=== PATIENT | female | born 1965 | race Caucasian/White ===

== ENCOUNTER 2020-01-12 23:29 | Emergency (ER) | payer OTHER, SELFPAY ==
[2020-01-12 23:43] VITALS: BP 134/85; PULSE 143; RESP 16; TEMP 36.4; O2SAT 95; BMI 25.4
--- NOTE | 2020-01-12 23:56 | XR_ITS ---
WS: [id number] XR chest 1V portable [id number] REASON FOR EXAM: cp FINDINGS: Sternotomy changes are seen. The lung campbell are hyper aerated consistent with chronic obstructive pulmonary disease. There was no pneumothorax seen. No pneumonia, pleural effusion, pulmonary edema, or mass effect. The chest is similar to December 16, 2018. XR/XR chest 1V portable [id number] IMPRESSION: Chronic obstructive pulmonary disease. Previous sternotomy changes.
--- NOTE | 2020-01-12 23:56 | ECG_ITS ---
Measurements Intervals [place] Rate: 143 P: NV: 0 QRS: -57 QRSD: 129 T: 73 QT: 312 QTc: 483 ATRIAL FLUTTER WITH RAPID VENTRICULAR RESPONSE MARKED LEFT AXIS DEVIATION [QRS AXIS < -30] LEFT BUNDLE BRANCH BLOCK No previous ECG available for comparison Electronically Signed On 01-13-2020 16:39:45 FRAMING SPECIALIST by Ashley Barclay M.D. [id number]
--- NOTE | 2020-01-12 23:57 | ED_ITS ---
Entered by Karin Rodriguez, acting as scribe for Liza Colon MD Jan 12, 2020 23:29 HPI - Arrhythmia/Palpitations General: Chief Complaint: Arrhythmia/Palpitations Stated Complaint: high BP Time Seen by Provider: 01/12/20 23:56 Source: patient and family Mode of arrival: ambulatory History of Present Illness: HPI narrative: 54 y/o female presents to the ED with complaint of racing heart sensation. Pt states she had a mitral valve prolapse repair 02/13/2019. She states she has not had any cardiac issues since then. However, she took a breathing treatment this evening and started feeling like her heart rate was increasing. She states she has used this inhaler many times before and never had any issues. complaint: heart racing Onset (ago): hour(s) Severity: mild Context: other (used inhaler) Associated symptoms: Deny nausea or vomiting Review of Systems Const: Denies: fever, chills, body aches or change in appetite Eyes: Denies: blurry vision or eye discomfort ENMT: Denies: throat pain or dental pain Card: Reports: other (racing heart beat) GI: Denies: abdominal pain, nausea, vomiting or diarrhea : Denies: painful urination Musc: Denies: neck pain or back pain Skin/Breast: Denies: rash Neuro: Denies: headache Psych: Denies: depression Jackson/Lymph: Denies: easy bruising All/Imm: Denies: hives PFSH ED PFSH: Social History Smoking and tobacco status: never smoked Physical Exam Const: COMMON NORMALS: no apparent distress, oriented x3 and healthy appearing HENMT: COMMON NORMALS: normocephalic and head/scalp atraumatic HEAD & SCALP: normocephalic and atraumatic Eye: COMMON NORMALS: PERRL and EOMs intact bilaterally PUPIL: Yes PERRL Neck/C-Spine: COMMON NORMALS: full ROM and supple Chest: COMMONS NORMALS: inspection of chest normal and palpation of chest normal Resp: COMMON NORMALS: normal respiratory effort, no retractions, no use of accessory muscles and clear to auscultation bilaterally AUSCULTATION: clear to auscultation bilaterally Cardio: COMMON NORMALS: no murmurs RATE: tachycardic GI: COMMON NORMALS: normal to inspection, nondistended, normoactive bowel sounds, soft to palpation, non-tender and no masses PALPATION: Yes soft Extremity: COMMON NORMALS: normal to inspection and full ROM Neuro: COMMON NORMALS: oriented x3, moves all extremities and no focal motor deficits Psych: COMMON NORMALS: mental status grossly normal, thought process normal and cooperative THOUGHT PROCESS: normal thought process Skin: COMMON NORMALS: no rashes or lesions noted and no wounds GENERAL SKIN EXAM: no rashes or lesions noted Course Vital Signs: Vital signs: Vital Signs Temperature 97.6 F 01/12/20 23:43 Pulse Rate 80 01/13/20 01:30 Respiratory Rate 19 H 01/13/20 01:30 Blood Pressure 119/71 01/13/20 01:30 Pulse Oximetry 98 01/13/20 01:30 MDM - Arrhythmia/Palpitations MDM Narrative: Medical decision making narrative: Grisel presents here with A. fib that is likely brought on by her inhaler. Patient spontaneously converted here and initial lab work including troponin are normal. Patient was observed here and continued to have normal sinus rhythm and she states she feels back to normal. Patient is stable for discharge and is to follow-up with Dr. Mina in 3 to 5 days. She is to return if worsening. She has no signs of pulmonary embolism. Lab Data: Labs: Lab Results 01/12/20 01/12/20 01/12/20 Range/Units 00:07 00:07 00:07 WBC 5.0 (4.0-10.0) 10^3/ uL RBC 4.25 (4.1-5.3) 10^6/u L Hgb 13.5 (11.5-15.3) g/dL Hct 40.9 (37.0-47.0) % MCV 96.2 (81-99) fL MCH 31.8 (28.0-34.0) pg MCHC 33.0 (30.0-36.0) g/dL RDW 11.7 L (12.1-15.1) % Plt Count 231 (130-400) 10^3/c mm MPV 10.1 (7.4-10.4) fL Neut % (Auto) 56.2 % Lymph % (Auto) 34.3 % [place] % (Auto) 5.5 % Eos % (Auto) 3.4 % Baso % (Auto) 0.4 % Neut # (Auto) 2.8 (1.8-7.7) 10^3/u L Lymph # (Auto) 1.7 (0.8-4.8) 10^3/u L [place] # (Auto) 0.3 (0.2-0.9) 10^3/u L Eos # (Auto) 0.2 (0.0-0.8) 10^3/u L Baso # (Auto) 0.0 (0.0-0.1) 10^3/u L Nucleated RBC % (a uto) 0 % Nucleated RBCs # 0.0 /100WBC Sodium 139 (136-145) mmol/L Potassium 3.8 (3.5-5.1) mmol/L Chloride 103 (98-107) mmol/L Carbon Dioxide 20 L (22-29) mmol/L Anion Gap 19.8 H (5-19) BUN 11 (6-20) mg/dL Creatinine 0.6 (0.5-0.9) mg/dL GFR Calculation 103.4 (90-130) mL/min Glucose 120 H (65-115) mg/dL Calcium 9.6 (8.5-10.5) mg/dL Total Bilirubin 0.4 (0.15-1.2) mg/dL AST 9 (0-32) U/L ALT 12 (0-33) U/L Alkaline Phosphata se 117 H (35-105) IU/L Troponin T Baselin e 7 (0-10) ng/mL Total Protein 7.7 (6.6-8.7) g/dL Albumin 4.4 (3.5-5.2) g/dL Globulin 3.3 (1.3-4.6) g/dL EKG Data^: EKG 1: Attestation: I personally reviewed and interpreted this EKG as follows: EKG interpretation date: 01/12/20 EKG interpretation time: 23:45 Interpretation: afib hr [address] or t wave abnormalties qrs 129 qtc 430 EKG 2: Attestation: I personally reviewed and interpreted this EKG as follows: EKG interpretation date: 01/13/20 EKG interpretation time: 01:25 Interpretation: nsr hr [address] or t wave abnormalities qrs 85 qtc 430 Discharge Plan Discharge Patient Disposition: Home, Self-Care Clinical Impression: Atrial fibrillation Qualifiers: Atrial fibrillation type: paroxysmal Qualified Code(s): I48.0 - Paroxysmal atrial fibrillation Condition: Stable Discharge Orders: Discharge Order (Routine); Ordered 01/13/20 Ordered By: Liza Colon Referrals: Juan Jolly DO [Primary Care Provider] - Discharge Diet: Advance as tolerated Discharge Activity: Resume usual activity Patient Instructions: Atrial Fibrillation (ED) Discharge Date/Time: 01/13/20 01:30 Coding Level of Care Code ED Copper Plater for Chg Fwd Exam Comprehensive The documentation recorded by the Michael goodrich Ashley, accurately reflects the service I personally performed and the decisions made by Darlene trujillo Korby, MD Jan 12, 2020 23:29
[2020-01-13 00:16] LABS: Basophils % 0.4 %; Eosinophils # 0.2 10^3/uL (0.0-0.8); Eosinophils % 3.4 %; Hematocrit 40.9 % (37.0-47.0); Hemoglobin 13.5 g/dL (11.5-15.3); Lymphocytes # 1.7 10^3/uL (0.8-4.8); Lymphocytes % 34.3 %; Mean Corpuscular Hemoglobin 31.8 pg (28.0-34.0); Mean Corpuscular Volume 96.2 fL (81-99); Mean Platelet Volume 10.1 fL (7.4-10.4); Monocytes # 0.3 10^3/uL (0.2-0.9); Monocytes % 5.5 %; Neutrophils # 2.8 10^3/uL (1.8-7.7); Neutrophils % 56.2 %; Nucleated Red Blood Cells % 0 %; Platelet Count 231 10^3/cmm (130-400); Red Blood Count 4.25 10^6/uL (4.1-5.3); Red Cell Distribution Width 11.7 % (12.1-15.1)
[2020-01-13 00:32] LABS: Troponin(5th) Baseline 7 ng/mL (0-10)
[2020-01-13] MEDS: sodium chloride 0.9% 1,000 ML 999 ML IV (00:39)
[2020-01-13 00:53] LABS: Alanine Aminotransferase 12 U/L (0-33); Albumin Level 4.4 g/dL (3.5-5.2); Alkaline Phosphatase 117 IU/L (35-105); Anion Gap 19.8 (5-19); Aspartate Amino Transferase 9 U/L (0-32); Blood Urea Nitrogen 11 mg/dL (6-20); Calcium 9.6 mg/dL (8.5-10.5); Carbon Dioxide 20 mmol/L (22-29); Chloride 103 mmol/L (98-107); Globulin 3.3 g/dL (1.3-4.6); Glomerular Filtration Rate 103.4 mL/min (90-130); Glucose 120 mg/dL (65-115); Potassium 3.8 mmol/L (3.5-5.1); Sodium 139 mmol/L (136-145); Total Bilirubin 0.4 mg/dL (0.15-1.2); Total Protein 7.7 g/dL (6.6-8.7)
[2020-01-13 01:30] VITALS: BP 119/71; PULSE 80; RESP 19; O2SAT 98
--- NOTE | 2020-01-13 05:56 | ECG_ITS ---
Measurements Intervals [place] Rate: 73 P: 19 NE: 148 QRS: 76 QRSD: 85 T: 2 QT: 404 QTc: [address] DEVIATION AND MODERATE T-WAVE ABNORMALITY, CONSIDER ANTERIOR ISCHEMIA No previous ECG available for comparison Electronically Signed On 01-13-2020 13:24:22 TELETYPE ADJUSTER by Ashley Barclay M.D. [id number]
== END 2020-01-13 01:30 | disposition home or self-care (01) ==
PROVIDERS: Emergency Provider Emergency Medicine; Family Provider Internal Medicine; PCP Internal Medicine
DX: I48.91 Unspecified atrial fibrillation (principal)
CPT/HCPCS: 36415; 71045; 80053; 84484; 85025; 93005; 96360; 96361; 96374; 99283; 99284; J7030

== ENCOUNTER 2020-08-27 07:28 | Outpatient (CLI) | payer OTHER, SELFPAY ==
--- NOTE | 2020-08-27 07:33 | MM_ITS ---
WS: [id number] Bilateral screening digital mammogram, 08/27/2020 Clinical Data: SCREENING Comparison: 07/18/2019, 05/06/2018, 02/23/2017, 12/09/2015, and 2012, 05/06/2010, 01/28/2008, 02/15/2007. Findings: The breast parenchymal pattern shows heterogeneous density No spiculated masses or clustered calcific ations are seen. There are no secondary signs of carcinoma. Mole markers are on both breasts. MM/[id number] Impression: 1. Negative bilateral mammogram unchanged. 2. Recommend annual screening mammograms. BIRADS: 1-Negative FOLLOW UP: 1 Year Follow-up The CAD checker bakery products was used. ,
== END 2020-08-27 07:29 | disposition home or self-care (01) ==
LOC: RADSHAW 07:30
PROVIDERS: PCP Internal Medicine; Visit Provider Internal Medicine
DX: Z12.31 Encounter for screening mammogram for malignant neoplasm of breast (principal)
CPT/HCPCS: 77067

== ENCOUNTER 2020-10-08 10:46 | Outpatient (CLI) | payer OTHER, SELFPAY ==
--- NOTE | 2020-10-08 11:00 | USCV_ITS ---
Grisel Edmond Age: 55 Gender: F : 1965 Exam Date: 10/08/2020 11:07 Ordering Phys: Yared Carroll M.D ([email or web address]) Technologist: Jaclyn Clement Exam Location: [facility] – [place] Indication: MV REPAIR BP: 116 / 76 HR: 78 Rhythm: Sinus Technical Quality: Adequate MEASUREMENTS (Male / Female) Normal Values 2D ECHO LVOT Diameter 2.0 cm LA Diameter 3.3 cm LA Width 2.9 cm LA Height 3.5 cm RA Width 3.5 cm RA Height 3.9 cm Aorta at Sinotubular Diameter 3.1 cm M-MODE LV Diastolic Diameter MM 4.5 cm 4.2 - 5.9 / 3.9 - 5.3 cm LV Systolic Diameter MM 2.5 cm LV Ejection Fraction MM Teich 74.5 % IVS Diastolic Thickness MM 0.9 cm 0.6 - 1.0 / 0.6 - 0.9 cm IVS Systolic Thickness MM 1.5 cm LVPW Diastolic Thickness MM 1.0 cm 0.6 - 1.0 / 0.6 - 0.9 cm LVPW Systolic Thickness MM 1.3 cm RV Diastolic Diameter MM 1.8 cm Aortic Annulus Diameter 1.8 cm LA Ao Ratio MM 1.2 MV E Point Septal Separation 0.3 cm DOPPLER AV Peak Velocity 98.0 cm/s LVOT Peak Velocity 67.0 cm/s AV Area Cont Eq vti 2.4 cm squared AV Area Cont Eq pk 2.2 cm squared MV Area PHT 4.1 cm squared Mitral E to A Ratio 0.7 MV E' Velocity 49.2 cm/s Mitral E to MV E' Ratio 10.8 Mitral E to LV E' Lateral Ratio 11.4 Mitral E to LV E' Septal Ratio 10.3 TR Peak Velocity 216.0 cm/s TR Peak Gradient 18.7 mmHg TR Mean Velocity 162.9 cm/s TR Mean Gradient 11.8 mmHg TR Velocity Time Integral 62.5 cm TV Peak E Velocity 65.0 cm/s PV Peak Velocity 53.0 cm/s RV Acceleration Time 0.1 s RV Ejection Time 0.4 s RV AcT/ET 0.3 FINDINGS Left Ventricle Normal left ventricular size. Systolic function is mildly reduced. LVEF is 40 to 45%. Septal motion is consistent with prior cardiac surgery. Mild global hypokinesis is noted. Moderate hypokinesis of anterior and anteroseptal cordoba is noted. Grade 1 diastolic dysfunction is noted. Right Ventricle The right ventricle is normal in size and function. Right Atrium The right atrium is normal in size. Left Atrium The left atrium is normal in size. Mitral Valve Annuloplasty ring is present. No significant mitral regurgitation is noted. There is no mitral regurgitation.. Aortic Valve Structurally normal aortic valve without significant sclerosis or stenosis. There is no aortic regurgitation. Tricuspid Valve Structurally normal tricuspid valve without significant stenosis or regurgitation. Insufficient TR jet to calculate RVSP. Pulmonic Valve Structurally normal pulmonic valve without significant stenosis. There is no pulmonic regurgitation. Pericardium Normal pericardium without effusion. Aorta Normal ascending aorta dimension. CONCLUSIONS LV systolic function is mildly reduced with EF of 40 to 45%. Mild global hypokinesis with moderate hypokinesis of anterior and anteroseptal cordoba. Septal motion is consistent with prior cardiac surgery. Grade 1 diastolic dysfunction is present. Mitral annuloplasty ring is not seen. No significant mitral regurgitation or stenosis is present. Compared to prior study from 10/16/2019, LV systolic function is mildly reduced. Yared Carroll MD (Electronically Signed) Final Date: 12 October 2020 10:13 S
== END 2020-10-08 10:47 | disposition home or self-care (01) ==
LOC: RAD 10:49
PROVIDERS: PCP Internal Medicine; Visit Provider Internal Medicine
DX: I34.1 Nonrheumatic mitral (valve) prolapse (principal)
CPT/HCPCS: 93306

== ENCOUNTER 2021-03-30 15:04 | Outpatient (CLI) | payer OTHER, SELFPAY ==
--- NOTE | 2021-03-30 15:12 | XR_ITS ---
WS: [id number] DEXA (DUAL ENERGY X-RAY ABSORPTIOMETRY) Bone mineral density was performed using a [employer] machine. HISTORY: POST MENOPAUSAL COMPARISON: 04/20/2016 Lumbar spine BMD (L1-L4): 0.880 g/cm2 T score: -2.5 Z score: -1.8 Total hip BMD Right: 0.782. T score: -1.8 Z score: -1.2 RIGHT forearm BMD: 0.799. T score: -0.9 Z score: -0.1 10 year probability of a major osteoporotic fracture is 22%. Compared to the prior study from 04/20/2016. Lumbar spine bone mineral density has decreased by 8.3%. Bilateral hips bone mineral density has increased by 3.9%. RIGHT forearm bone mineral density has decreased 2.2%. XR/XR DEXA axial skeleton* [id number] IMPRESSION: OSTEOPENIA based upon the WHO classification for females. Significant decrease in bone mineral density within the lumbar spine and RIGHT forearm since the vida or study.
== END 2021-03-30 15:05 | disposition home or self-care (01) ==
LOC: RADWPI 15:09
PROVIDERS: PCP Internal Medicine; Visit Provider Physician Assistant
DX: Z78.0 Asymptomatic menopausal state (principal); M85.89 Other specified disorders of bone density and structure, multiple sites
CPT/HCPCS: 77080

== ENCOUNTER 2021-06-20 13:15 | Outpatient (CLI) | payer OTHER, SELFPAY ==
[2021-06-20 13:35] VITALS: BP 126/78; PULSE 78; RESP 18; TEMP 36.2; O2SAT 97
[2021-06-20] MEDS: denosumab 60 mg SDV SUBCUT (13:46)
[2021-06-20 14:02] VITALS: BP 92/50; PULSE 65; RESP 18; TEMP 36.4; O2SAT 95
[2021-06-20 14:18] VITALS: BP 93/60; PULSE 61; RESP 18; O2SAT 95
[2021-06-20 14:34] VITALS: BP 124/74; PULSE 74; RESP 18; O2SAT 96
--- NOTE | 2021-06-20 14:39 | PC.NURSE ---
Patient's blood pressure was low, (71/41) on post injection vital sign check. Upon manual recheck it was 92/50. Continued to assess vitals periodically, and her reading upon discharge was 124/74. She stated that she felt fine, and was showing no s/s of distress.
== END 2021-06-20 13:16 | disposition home or self-care (01) ==
LOC: ONCMED 13:18
PROVIDERS: PCP Internal Medicine; Referring Provider Internal Medicine; Visit Provider Internal Medicine
DX: M81.0 Age-related osteoporosis without current pathological fracture (principal); Z79.899 Other long term (current) drug therapy
CPT/HCPCS: 96372; J0897

== ENCOUNTER 2021-09-16 18:37 | Emergency (ER) | payer OTHER, SELFPAY ==
[2021-09-16 19:22] VITALS: BP 151/82; PULSE 81; RESP 18; TEMP 36.6; O2SAT 99; BMI 25.7
--- NOTE | 2021-09-16 19:52 | XRR_ITS ---
PROCEDURE INFORMATION: Exam: XR Right Knee Exam date and time: 09/16/2021 7:52 PM Age: 56 years old Clinical indication: Patient HX: Right knee pain after injury - fall from swing TECHNIQUE: Imaging protocol: XR Right knee. Views: 3 views. COMPARISON: No relevant prior studies available. FINDINGS: Bones/joints: Comminuted mildly displaced fracture through the anterior and distal 3rd of the patella. The other bones are intact. Right knee joint effusion with layering fat. Soft tissues: Normal. XR/XR knee RT 3V* [id number] IMPRESSION: 1. Comminuted patella fracture. 2. Lipohemarthrosis. Radiation Dose CTDIVOL = (mGy): DLP = (mGy-cm)
--- NOTE | 2021-09-16 20:48 | W.ED.EXTPRO ---
HPI - Extremity Problem General: Chief complaint: Extremity Injury, Lower Stated complaint: Rt Knee Injury Time Seen by Provider: 09/16/21 20:47 History of Present Illness: HPI Narrative: 56-year-old female comes in today with injury to the right knee. Patient was swinging on a swing and her feet caught against the ground causing her to fall forward she landed against her right knee hard on ground on the ground. Patient has pain and discomfort to the anterior knee. Patient appears well. Patient appears no acute distress. Review of Systems General: Reports: 10 or more systems reviewed and unremarkable except in HPI and below Musc: Reports: other (Right knee pain) [facility] PFSH: Medical History Asthma Atrial flutter Closed hip fracture requiring operative repair Family history of malignant melanoma MVP (mitral valve prolapse) Nasal polyps Surgical History H/O sinus surgery S/P mitral valve repair Status post tubal ligation Family History Mother Cancer Diabetes Brother Diabetes Other Family history of malignant melanoma Social History Smoking and tobacco status: never smoked Alcohol intake: never Lives independently: Yes Household members: spouse Marital status: Current occupational status: employed History of recent travel: No Current gender identity: Female Physical Exam Const: COMMON NORMALS: no acute distress and patient oriented x3 GENERAL APPEARANCE: cooperative HENMT: COMMON NORMALS: normocephalic and Normal external nose present HEAD & SCALP: normal to inspection and normocephalic NOSE: Normal external nose present MOUTH: Normal oral and palatal mucosa present THROAT: posterior oropharynx normal Eye: GENERAL EYE: appearance normal, both eyes and all related structures Neck/C-Spine: COMMON NORMALS: full ROM Chest: COMMONS NORMALS: normal inspection of the chest Resp: COMMON NORMALS: normal respiratory effort EFFORT & INSPECTION: Yes able to speak in complete sentences Cardio: COMMON NORMALS: regular rate and regular rhythm RATE: regular rate RHYTHM: regular rhythm GI: COMMON NORMALS: non-tender Back/Pelvis: COMMON NORMALS: thoracic and lumbar spine normal to inspection Extremity: NARRATIVE EXTREMITY EXAM: Ecchymosis and swelling to the anterior right knee. Patient reports pain with flexion. Neuro: COMMON NORMALS: patient oriented x3 and moves all extremities Psych: COMMON NORMALS: mental status grossly normal and cooperative Skin: COMMON NORMALS: no rashes or lesions noted GENERAL SKIN EXAM: no rashes or lesions noted Course Vital Signs: Vital signs: Vital Signs Temperature 97.8 F 09/16/21 19:22 Pulse Rate 81 09/16/21 19:22 Respiratory Rate 18 09/16/21 19:22 Blood Pressure 151/82 09/16/21 19:22 Pulse Oximetry 99 09/16/21 19:22 MDM - Extremity (Nontraumatic) MDM Narrative: Medical decision making narrative: Patient comes in today for injury to the right knee. On exam there is anterior ecchymosis and swelling. Distal pulses and sensations are intact. Reduced flexion is noted. Distal pulses and sensation is intact. Differential diagnosis includes contusion, joint effusion, patellar fracture. X-ray notes a comminuted nondisplaced patellar fracture. Reviewed exam with patient with recommendations for treatment and follow-up. Patient reported understanding and agreed to plan. Case management will assist patient with follow-up with orthopedist. Discharge Plan Discharge Patient Disposition: Home Clinical Impression: Patellar fracture Qualifiers: Encounter type: initial encounter Fracture type: closed Fracture morphology: comminuted Fracture alignment: nondisplaced Laterality: right Qualified Code(s): S82.044A - Nondisplaced comminuted fracture of right patella, initial encounter for closed fracture Condition: Stable Prescriptions: New hydrocodone-acetaminophen 5-325 mg tablet 1 tab PO Q6H PRN (Reason: pain) Qty: 7 RF: 0 No Action aspirin [Adult Aspirin Regimen] 81 mg tablet,delayed release (DR/EC) 81 mg PO DAILY RF: 0 metoprolol succinate 25 mg tablet extended release 24 hr 12.5 mg PO DAILY RF: 0 budesonide 32 mcg/actuation spray,non-aerosol 1 spray INTRANASAL DAILY PRNRF: 0 Arnuity Ellipta 200 mcg/actuation blister with device 1 inh inhalation DAILY 30 Days Qty: 30 RF: 4 levalbuterol tartrate 45 mcg/actuation HFA aerosol inhaler 2 inh inhalation Q6H PRN (Reason: shortness of breath or wheezing) 30 Days Qty: 15 RF: 4 Discharge Orders: Discharge ED (Routine); Ordered 09/16/21 Ordered By: Eddi Wang Referrals: Juan Jolly DO [Primary Care Provider] - Discharge Diet: Usual diet Discharge Activity: Limit activity as instructed Patient Instructions: Patellar Fracture (ED), Opioid Safety Activity Restrictions/Additional Instructions: Activity as tolerated. Use acetaminophen or ibuprofen for control of pain. Use hydrocodone for breakthrough pain. Case management will contact you regarding follow-up appointment with orthopedist. Return to the emergency department for new concerns. Coding Level of Care Code ED Last Repairer Helper for Hina George
[2021-09-16] MEDS: HYDROcodone-acetaminophen 7.5-325 mg Tablet 1 TAB PO (21:05)
[2021-09-16 21:22] VITALS: BP 151/82; PULSE 81; RESP 18; TEMP 36.6; O2SAT 99
--- NOTE | 2021-09-19 09:30 | DCPLANNER ---
senior group manager had message to schedule a follow up appointment for patient with ortho. senior group manager called the ortho clinic, spoke with Pita, gave clinic patients information. senior group manager was told that patients information would be printed and reviewed. Clinic will call patient with appointment information.
--- NOTE | 2021-09-21 14:29 | DCPLANNER ---
Patient had a follow up appointment scheduled for 09.19.[address] Orellana at [facility] -patient did attend appointment.
== END 2021-09-16 21:20 | disposition home or self-care (01) ==
PROVIDERS: Emergency Provider Nurse Practitioner Family; PCP Internal Medicine
DX: S82.044A Nondisplaced comminuted fracture of right patella, initial encounter for closed fracture (principal); Z79.82 Long term (current) use of aspirin; W09.1XXA Fall from playground swing, initial encounter
CPT/HCPCS: 29530; 73562; 99283; E0114

== ENCOUNTER 2021-09-19 14:23 | Outpatient (CLI) | payer OTHER, SELFPAY | END 2021-09-19 14:24 | disposition home or self-care (01) | LOC: SPT 14:24 | PROVIDERS: PCP Internal Medicine; Visit Provider Specialist | DX: Z46.89 Encounter for fitting and adjustment of other specified devices (principal); S82.044A Nondisplaced comminuted fracture of right patella, initial encounter for closed fracture; X58.XXXA Exposure to other specified factors, initial encounter | CPT/HCPCS: 97760; L1832 ==

== ENCOUNTER → 2021-10-11 10:51 | Outpatient (BNVA) | payer OTHER, SELFPAY | PROVIDERS: PCP Internal Medicine; Visit Provider Specialist | DX: S82.044D Nondisplaced comminuted fracture of right patella, subsequent encounter for closed fracture with routine healing (principal); X58.XXXD Exposure to other specified factors, subsequent encounter | CPT/HCPCS: 73560 ==

== ENCOUNTER → 2021-10-31 08:06 | Outpatient (BNVA) | payer OTHER, SELFPAY | PROVIDERS: PCP Internal Medicine; Visit Provider Specialist | DX: S82.044A Nondisplaced comminuted fracture of right patella, initial encounter for closed fracture (principal); X58.XXXA Exposure to other specified factors, initial encounter | CPT/HCPCS: 73560; 73565 ==

== ENCOUNTER 2021-10-31 15:20 | Outpatient (CLI) | payer OTHER, SELFPAY ==
--- NOTE | 2021-10-31 15:31 | MM_ITS ---
WS: [id number] BILATERAL DIGITAL SCREENING MAMMOGRAPHY WITH CAD CLINICAL INFORMATION: SCREENING HISTORY: Screening mammogram. No current complaints. COMPARISON: August 27, 2020 TECHNIQUE: Bilateral CC and MLO views. FINDINGS: The breasts are composed of heterogeneous fibroglandular density tissue, which can limit the detectio n of small underlying mass lesions. No suspicious mass, asymmetry, calcifications, or architectural d istortion. No evidence of malignancy. MM/[place] [id number] IMPRESSION: BI-RADS: 1-Negative FOLLOW UP: 1 Year Follow-up Recommend return to annual screening mammography.
== END 2021-10-31 15:21 | disposition home or self-care (01) ==
LOC: RADSHAW 15:28
PROVIDERS: PCP Internal Medicine; Visit Provider Internal Medicine
DX: Z12.31 Encounter for screening mammogram for malignant neoplasm of breast (principal)
CPT/HCPCS: 77067

== ENCOUNTER 2022-05-25 15:17 | Outpatient (CLI) | payer OTHER, SELFPAY ==
--- NOTE | 2022-05-25 15:27 | USCV_ITS ---
Grisel Edmond Age: 57 Gender: F : 1965 Exam Date: 05/25/2022 15:43 Ordering Phys: Ashley Barclay MD ([email or web address]) Technologist: Lindsey Calero Exam Location: [facility] – [place] Indication: postprocedural BP: 111 / 69 HR: 71 Rhythm: Sinus Technical Quality: Adequate MEASUREMENTS (Male / Female) Normal Values 2D ECHO LV Diastolic Diameter PLAX 5.0 cm 4.2 - 5.9 / 3.9 - 5.3 cm LV Systolic Diameter PLAX 4.0 cm IVS Diastolic Thickness 1.1 cm 0.6 - 1.0 / 0.6 - 0.9 cm IVS Systolic Thickness 1.5 cm LVPW Diastolic Thickness 1.0 cm 0.6 - 1.0 / 0.6 - 0.9 cm LVPW Systolic Thickness 1.3 cm LVOT Diameter 2.0 cm LV Ejection Fraction 2D Teich 38.9 % LV Ejection Fraction MOD 2C 49.9 % LV Ejection Fraction 2C AL 50.1 % LA Diameter 3.5 cm LA Width 3.9 cm LA Height 3.6 cm RA Width 3.2 cm RA Height 3.8 cm Aorta at Sinotubular Diameter 2.3 cm IVC Diameter 1.3 cm M-MODE Aortic Annulus Diameter 2.5 cm LA Ao Ratio MM 1.3 MV E Point Septal Separation 0.8 cm DOPPLER Right Atrial Pressure 3.0 mmHg FINDINGS Left Ventricle Mild diffuse hypokinesis of the left ventricle with an LV ejection fraction of 50% Normal LV size Right Ventricle The right ventricle is normal in size and function. Right Atrium The right atrium is normal in size. Left Atrium Mildly increased left atrial size. Mitral Valve Moderate mitral annular calcification. Thickened mitral valve. Aortic Valve No gross abnormalities noted Tricuspid Valve No gross abnormalities noted Pulmonic Valve Pulmonic valve not well visualized. Pericardium Normal pericardium without effusion. Aorta Normal ascending aorta dimension. IVC The inferior vena cava pulmonary and hepatic veins appear normal. CONCLUSIONS Mild diffuse hypokinesis of the left ventricle with an LV ejection fraction of 50%. Moderate mitral annular calcification. Thickened mitral valve. Normal LV size. Moderate mitral annular calcification. Thickened mitral valve. There is no pericardial effusion. There are no intracardiac masses. Dr Uyen Terry MD FACC (Electronically Signed) Final Date: 25 May 2022 23:41 S
== END 2022-05-25 15:18 | disposition home or self-care (01) ==
PROVIDERS: PCP Internal Medicine; Visit Provider Internal Medicine Cardiovascular Disease
DX: Z98.890 Other specified postprocedural states (principal)
CPT/HCPCS: 93308

== ENCOUNTER 2022-10-19 06:14 | Outpatient (CLI) | payer OTHER, SELFPAY ==
--- NOTE | 2022-10-19 06:30 | CT_ITS ---
WS: [id number] CT SINUSES TECHNIQUE: Noncontrast CT of the paranasal sinuses with coronal and sagittal reformatted images. CLINICAL INFORMATION: chronic sinusitis COMPARISON: None. DLP: 371.[address] scans at [facility] use at least one of these dose optimization techniques: automated e xposure control; mA and/or kV adjustment per patient size (includes targeted exams where dose is matc hed to clinical indication); or iterative reconstruction. FINDINGS: Mastoid air cells are well aerated. Normal posterior nasopharynx. Prior postoperative changes bilater al maxillary antrostomies with ethmoidectomies and uncinectomies. Bilateral middle turbinectomies. Pa ranasal sinuses are well aerated. Frontal sinuses are well aerated. Mild mucosal thickening ethmoid air cells. A few retention cysts or polyps. Retention cyst RIGHT maxillary sinus measuring 8 mm. Retention cyst or polyp in the LEFT mirtha al cavity measuring [address]/CT sinus wo con* [id number] IMPRESSION: 1. Prior postoperative changes bilateral maxillary antrostomies. Bilateral mid dle turbinectomies. Bilateral uncinectomies. Bilateral ethmoidectomies. 2. Ostiomeatal units are well aerated. Paranasal sinuses are well aerated. 3. Mild mucosal thickening ethmoid air cells. 13 mm polyp LEFT nasal cavity. 4. Small retention cyst RIGHT maxillary sinus measuring 8 mm. 5. Mastoid air cells are well aerated. Normal posterior nasopharynx.
== END 2022-10-19 06:15 | disposition home or self-care (01) ==
LOC: RAD 06:15
PROVIDERS: PCP Internal Medicine; Visit Provider Otolaryngology
DX: J32.9 Chronic sinusitis, unspecified (principal); J33.9 Nasal polyp, unspecified
CPT/HCPCS: 70486

== ENCOUNTER 2022-11-20 07:21 | Outpatient (CLI) | payer OTHER, SELFPAY ==
--- NOTE | 2022-11-20 07:45 | MM_ITS ---
WS: [id number] BILATERAL 3D TOMOSYNTHESIS DIGITAL SCREENING MAMMOGRAPHY WITH CAD CLINICAL INFORMATION: SCREENING HISTORY: Screening mammogram. No current complaints. COMPARISON: 2020 TECHNIQUE: Bilateral CC and MLO views. FINDINGS: The breasts are composed of heterogeneous fibroglandular density tissue, which can limit the detectio n of small underlying mass lesions. No suspicious mass, asymmetry, calcifications, or architectural d istortion. No evidence of malignancy. MM/[id number] IMPRESSION: BI-RADS: 1-Negative FOLLOW UP: 1 Year Follow-up Recommend return to annual screening mammography.
== END 2022-11-20 07:22 | disposition home or self-care (01) ==
LOC: RAD 07:23
PROVIDERS: PCP Internal Medicine
DX: Z12.31 Encounter for screening mammogram for malignant neoplasm of breast (principal)
CPT/HCPCS: 77063; 77067

== ENCOUNTER → 2022-12-01 12:00 | Outpatient (BNVA) | payer OTHER, SELFPAY | PROVIDERS: PCP Internal Medicine; Visit Provider Otolaryngology | DX: J33.9 Nasal polyp, unspecified (principal) | CPT/HCPCS: 88304 ==

== ENCOUNTER 2023-02-20 15:07 | Outpatient (CLI) | payer OTHER, SELFPAY ==
--- NOTE | 2023-02-20 15:00 | USCV_ITS ---
Grisel Edmond Age: 58 Gender: F : 1965 Exam Date: 02/20/2023 15:50 Ordering Phys: Kb Mina MD ([email or web address]) Technologist: ADRIA Exam Location: [facility] [place] Indication: MITVAL VALVE REPAIR BP: 110 / 70 HR: 63 Rhythm: Sinus Technical Quality: Adequate MEASUREMENTS (Male / Female) Normal Values 2D ECHO LVOT Diameter 2.0 cm LV Ejection Fraction MOD 2C 55.9 % LV Ejection Fraction 2C AL 57.1 % LA Diameter 3.2 cm LA Width 2.9 cm LA Height 4.2 cm RA Width 2.1 cm RA Height 3.7 cm Aorta at Sinotubular Diameter 2.2 cm IVC Diameter 1.6 cm M-MODE Aortic Annulus Diameter 2.3 cm LA Ao Ratio MM 1.1 MV E Point Septal Separation 0.4 cm DOPPLER AV Peak Velocity 103.0 cm/s LVOT Peak Velocity 76.0 cm/s AV Area Cont Eq vti 2.3 cm squared AV Area Cont Eq pk 2.4 cm squared MV Peak Velocity 123.0 cm/s MV Area PHT 3.0 cm squared Mitral E to A Ratio 0.7 MV E' Velocity 43.5 cm/s Mitral E to MV E' Ratio 9.7 Mitral E to LV E' Lateral Ratio 12.0 Mitral E to LV E' Septal Ratio 8.1 TR Peak Velocity 136.5 cm/s TR Peak Gradient 7.5 mmHg TR Mean Velocity 103.3 cm/s TR Mean Gradient 4.6 mmHg TR Velocity Time Integral 40.5 cm TV Peak E Velocity 38.0 cm/s Right Atrial Pressure 3.0 mmHg Pulmonary Artery Systolic Pressu 10.5 mmHg PV Peak Velocity 84.0 cm/s RV Acceleration Time 0.1 s RV Ejection Time 0.3 s RV AcT/ET 0.4 FINDINGS Left Ventricle Abnormal (paradoxical) septal motion consistent with postoperative status. EF is improved from Normal left ventricular cavity size. Normal left ventricular wall thickness. Mildly decreased left ventricular systolic function. Left ventricular ejection fraction is estimated at 50 %. No regional wall motion abnormalities. Grade I/IV diastolic dysfunction (abnormal relaxation filling pattern), normal to mildly elevated filling pressures. Right Ventricle Normal right ventricular size and systolic function. Normal right ventricular systolic pressure. Right Atrium The right atrium is normal in size. Left Atrium Mildly increased left atrial size. Mitral Valve Structurally normal mitral valve. Annuloplasty repair. Trace mitral valve regurgitation. Aortic Valve Structurally normal aortic valve without significant sclerosis or stenosis. There is no aortic regurgitation. Tricuspid Valve Structurally normal tricuspid valve without significant stenosis or regurgitation. Pulmonary artery systolic pressure is normal. Pulmonic Valve Pulmonic valve not well visualized. Pericardium Normal pericardium without effusion. Aorta Normal ascending aorta dimension. IVC The inferior vena cava appears normal. CONCLUSIONS Normal left ventricular cavity size. Normal left ventricular wall thickness. Mildly decreased left ventricular systolic function. Left ventricular ejection fraction is estimated at 50 %. No regional wall motion abnormalities. Grade I/IV diastolic dysfunction (abnormal relaxation filling pattern), normal to mildly elevated filling pressures. Mildly increased left atrial size. Structurally normal mitral valve. Annuloplasty repair. Trace mitral valve regurgitation. EF is improved from 10/12/2020. Oterwise no change Dr. Kb Mina MD (Electronically Signed) Final Date: 02 March 2023 10:17 S
== END 2023-02-20 15:08 | disposition home or self-care (01) ==
PROVIDERS: PCP Internal Medicine; Visit Provider Internal Medicine Cardiovascular Disease
DX: I34.1 Nonrheumatic mitral (valve) prolapse (principal); I48.92 Unspecified atrial flutter; Z95.2 Presence of prosthetic heart valve
CPT/HCPCS: 93306

== ENCOUNTER → 2023-03-09 11:37 | Outpatient (BNVA) | payer OTHER, SELFPAY | PROVIDERS: PCP Internal Medicine; Visit Provider Internal Medicine Pulmonary Disease | DX: J45.909 Unspecified asthma, uncomplicated (principal); I42.9 Cardiomyopathy, unspecified | CPT/HCPCS: 36415; 82785; 85025; 86003 ==

== ENCOUNTER 2023-06-28 13:01 | Outpatient (CLI) | payer OTHER, SELFPAY ==
--- NOTE | 2023-06-28 13:13 | XR_ITS ---
WS: [id number] DEXA (DUAL ENERGY X-RAY ABSORPTIOMETRY) Bone mineral density was performed using a [employer] machine. HISTORY: Postmenoposal COMPARISON: 03/30/2021 Lumbar spine BMD (L1-L4): 1.006 g/cm2 T score: -1.5 Z score: -0.7 Total hip BMD: Left: 0.938 g/cm2. T score: -0.6 Z score: 0.1 Right: 0.803 g/cm2. T score: -1.6 Z score: -1.0 10 year probability of a major osteoporotic fracture is 40.1%. Compared to the prior study from 03/30/2021. Lumbar spine bone mineral density has increased by 14.3%. IMPRESSION: OSTEOPENIA based upon the WHO classification for females. Significant increase in bone mineral density within the spine since the prior study.
== END 2023-06-28 13:02 | disposition home or self-care (01) ==
PROVIDERS: PCP Internal Medicine; Visit Provider Physician Assistant
DX: Z78.0 Asymptomatic menopausal state (principal); M85.80 Other specified disorders of bone density and structure, unspecified site
CPT/HCPCS: 77080

== ENCOUNTER 2023-11-22 08:44 | Outpatient (CLI) | payer OTHER, SELFPAY ==
--- NOTE | 2023-11-22 08:51 | MM_ITS ---
WS: [id number] SCREENING DIGITAL TOMOSYNTHESIS MAMMOGRAM WITH CAD HISTORY: SCREEN COMPARISON: 11/20/2022 and 10/31/2021 Bilateral CC and MLO with tomosynthesis views submitted. Synthetic mammography reviewed. Computer aid ed detection analyzed. Breast composition: The breasts are heterogeneously dense, which may obscure small masses. No suspici ous masses, microcalcifications or architectural distortion. Stable asymmetries. IMPRESSION: MM/[place] [id number] BI-RADS: 2-Benign FOLLOW UP: 1 Year Follow-up
== END 2023-11-22 08:45 | disposition home or self-care (01) ==
LOC: RAD 08:44
PROVIDERS: PCP Internal Medicine; Visit Provider Internal Medicine
DX: Z12.31 Encounter for screening mammogram for malignant neoplasm of breast (principal)
CPT/HCPCS: 77063; 77067

== ENCOUNTER 2024-11-27 08:14 | Outpatient (CLI) | payer OTHER, SELFPAY ==
--- NOTE | 2024-11-27 08:16 | MM_ITS ---
WS: [email or web address] BILATERAL SCREENING DIGITAL TOMOSYNTHESIS MAMMOGRAM WITH CAD HISTORY: SCREENING COMPARISON: 11/22/2023, 11/20/2022, 08/27/2020 Bilateral CC and MLO views with tomosynthesis and synthetic mammography submitted. Computer aided det ection analyzed. Breast composition: The breasts are heterogeneously dense, which may obscure small masses. No suspici ous masses, microcalcifications or architectural distortion. Prominent duct in the LEFT breast just p osterior to the nipple has been present on multiple prior exams. No additional suspicious calcificati ons or interval change in either breast since at least 2019. MM/MM scr BI tomosynthesis [id number] IMPRESSION: BI-RADS: 2 - Benign FOLLOW UP: 1 Year Follow-up
== END 2024-11-27 08:15 | disposition home or self-care (01) ==
LOC: RAD 08:15
PROVIDERS: PCP Physician Assistant; Visit Provider Physician Assistant
DX: Z12.31 Encounter for screening mammogram for malignant neoplasm of breast (principal); R92.333 Mammographic heterogeneous density, bilateral breasts; R92.8 Other abnormal and inconclusive findings on diagnostic imaging of breast
CPT/HCPCS: 77063; 77067

== ENCOUNTER 2025-06-30 13:21 | Outpatient (CLI) | payer OTHER, SELFPAY ==
--- NOTE | 2025-06-30 13:26 | XR_ITS ---
WS: [email or web address] SCREENING DEXA SCAN [place] CLINICAL INFORMATION: OSTEOPOROSIS COMPARISON: 2022 FINDINGS: The L1-L4 bone mineral density measures 1.00. This corresponds to a T score score of -1.7 and Z score of -0.3. RIGHT femoral neck bone mineral density measures 0.784. This corresponds to a T score of -1.8 and Z score of -0.7. Right forearm bone mineral density measures 0.812. This corresponds to a T score -0.7 of and Z score of 0.4. XR/XR DEXA axial skeleton* [id number] IMPRESSION: Osteopenia lumbar spine. Osteopenia RIGHT femur. Normal bone mineralization RIG HT forearm Patient's FRAX calculated 10 year probability for major osteoporotic fracture i s 43.3% and osteoporotic hip fracture is 4.4%. Lumbar spine bone mineral density decreased -1.7% RIGHT femur bone mineral density decreased -2.4% RIGHT forearm bone mineral density increased 1.6%
== END 2025-06-30 13:22 | disposition home or self-care (01) ==
LOC: RAD 13:22
PROVIDERS: PCP Physician Assistant; Visit Provider Physician Assistant
DX: M81.0 Age-related osteoporosis without current pathological fracture (principal)
CPT/HCPCS: 77080